=== PATIENT | female | born 1960 | race Caucasian/White ===

== ENCOUNTER 2017-11-08 16:27 | Emergency (ER) | payer MEDICAID | END 2017-11-08 19:14 | disposition home or self-care (01) | LOC: D.ER 16:27 | DX: R11.2 Nausea with vomiting, unspecified (principal); R19.7 Diarrhea, unspecified; E11.9 Type 2 diabetes mellitus without complications; Z79.4 Long term (current) use of insulin; I25.810 Atherosclerosis of coronary artery bypass graft(s) without angina pectoris; I10 Essential (primary) hypertension; J44.9 Chronic obstructive pulmonary disease, unspecified ==

== ENCOUNTER 2018-01-01 12:34 | Emergency (ER) | payer MEDICAID ==
[~2018-01-01] VITALS: Ht 165.1 cm; Wt 66.8 kg
[2018-01-01 13:42] VITALS: Ht 165.1 cm; Wt 66.8 kg
[2018-01-01] MEDS ORDERED: TIROSINT100 MCG PO (13:45)
[2018-01-01] MEDS ORDERED: PROVENTIL HFA6.7 GM INH (13:46)
[2018-01-01] MEDS ORDERED: CATAPRES0.1 MG PO (13:46)
[2018-01-01] MEDS ORDERED: SEROQUEL300 MG PO (13:47)
[2018-01-01] MEDS ORDERED: ROPINIROLE HCL2 MG PO (13:47)
[2018-01-01] MEDS ORDERED: ROBAXIN-750750 MG PO (20:25)
[2018-01-01] MEDS ORDERED: TORADOL10 MG PO (20:25)
[2018-01-01 21:01] VITALS: BP 136/90
[2018-01-01 21:30] LABS: UDS - AMPHET POSITIVE QUAL (NEGATIVE); UDS - BARB NEGATIVE QUAL (NEGATIVE); UDS - BENZO NEGATIVE QUAL (NEGATIVE); UDS - COCAINE NEGATIVE QUAL (NEGATIVE); UDS - OPIATE NEGATIVE QUAL (NEGATIVE); UDS - PCP NEGATIVE QUAL (NEGATIVE); UDS - THC NEGATIVE QUAL (NEGATIVE)
[2018-01-01 21:43] LABS: APPEARANCE CLEAR (CLEAR); BILIRUBIN NEGATIVE (NEGATIVE); COLOR STRAW (YELLOW); GLUCOSE NEGATIVE (NEGATIVE); KETONE NEGATIVE (NEGATIVE); NITRITE NEGATIVE (NEGATIVE); PROTEIN NEGATIVE (NEGATIVE); UROBILINOGEN NORMAL (NORMAL)
[2018-01-01 21:44] LABS: BACTERIA MANY /hpf (NONE SEEN); MUCUS <1+ /lpf (NONE SEEN); RED CELLS - URINE 0-5 /hpf (0-5)
== END 2018-01-01 21:02 | disposition home or self-care (01) ==
LOC: D.ER 12:34
PROVIDERS: Family Medicine
DX: S39.012A Strain of muscle, fascia and tendon of lower back, initial encounter (principal); Y93.83 Activity, rough housing and horseplay; Y92.019 Unspecified place in single-family (private) house as the place of occurrence of the external cause; F17.200 Nicotine dependence, unspecified, uncomplicated

== ENCOUNTER 2018-02-15 08:45 | Emergency (ER) | payer MEDICAID ==
[~2018-02-15] VITALS: Ht 165.1 cm; Wt 65.9 kg
[~2018-02-15 08:45] MED LIST: CATAPRES0.1 MG PO; PROVENTIL HFA6.7 GM INH; ROBAXIN-750750 MG PO; ROPINIROLE HCL2 MG PO; SEROQUEL300 MG PO; TIROSINT100 MCG PO; TORADOL10 MG PO
[2018-02-15 08:55] VITALS: Ht 165.1 cm; Wt 65.9 kg
[2018-02-15 11:18] VITALS: BP 135/88
== END 2018-02-15 11:18 | disposition home or self-care (01) ==
LOC: D.ER 08:45
DX: S32.591A Other specified fracture of right pubis, initial encounter for closed fracture (principal); W19.XXXA Unspecified fall, initial encounter; Y93.89 Activity, other specified; Y92.019 Unspecified place in single-family (private) house as the place of occurrence of the external cause; M25.551 Pain in right hip; E07.9 Disorder of thyroid, unspecified; I10 Essential (primary) hypertension; J44.9 Chronic obstructive pulmonary disease, unspecified; F17.200 Nicotine dependence, unspecified, uncomplicated

== ENCOUNTER 2018-03-27 06:42 | Emergency (ER) | payer MEDICAID ==
[~2018-03-27] VITALS: Ht 165.1 cm; Wt 68.2 kg
[2018-03-27 06:43] VITALS: Ht 165.1 cm; Wt 68.2 kg
[2018-03-27 07:28] LABS: BASOPHILS 0.4 % (0-2); EOSINOPHILS 5.8 % (0-7); HEMATOCRIT 38.2 % (36.0-48.0); HEMOGLOBIN 13.1 g/dL (12-16); LYMPHOCYTES 40.7 % (15-50); MCH 29.8 pg (26.0-34.0); MCHC 34.3 g/dL (31.0-37.0); MONOCYTES 5.9 % (2-11); NEUTROPHILS 47.2 % (40-80); PLATELET COUNT 252 10x3/uL (130-400); RBC 4.39 10x6/uL (4.00-5.40); RDW 13.6 % (11.5-14.5); WBC 7.3 10x3/uL (4.8-10.8)
[2018-03-27 07:40] LABS: ALBUMIN 3.3 g/dL (3.4-5.0); ANION GAP 14.7 mmol/L (8-16); BILIRUBIN - TOTAL 0.3 mg/dL (0.2-1.3); CALCIUM 8.6 mg/dL (8.5-10.1); CARBON DIOXIDE 23.7 mmol/L (21.0-32.0); CREATININE - SERUM 0.9 mg/dL (0.6-1.3)
[2018-03-27 07:42] LABS: POTASSIUM - SERUM 3.4 mmol/L (3.5-5.1)
[2018-03-27] MEDS ORDERED: KEFLEX500 MG PO (08:04)
[2018-03-27] MEDS ORDERED: NORCO 7.5/325 T1 TA1 PO (08:04)
[2018-03-27 08:44] VITALS: BP 154/89
== END 2018-03-27 08:45 | disposition home or self-care (01) ==
LOC: D.ER 06:42
PROVIDERS: Family Medicine
DX: R06.00 Dyspnea, unspecified (principal); J40 Bronchitis, not specified as acute or chronic; J44.9 Chronic obstructive pulmonary disease, unspecified; I10 Essential (primary) hypertension; F17.200 Nicotine dependence, unspecified, uncomplicated

== ENCOUNTER 2018-05-02 05:59 | Inpatient (IN) | payer MEDICAID ==
[~2018-05-02] VITALS: Ht 165.1 cm; Wt 63.6 kg
--- NOTE | ~2018-05-02 | MORECARE ---
CASE MANAGEMENT DISCHARGE SUMMARY PATIENT: LUIS NAVARRO UNIT: [id number] ADM DATE: 05/02/18 AGE: 58 : 64 SEX: F ROOM/BED: D.6554 AUTHOR: GUILHERME,DOC PHYSICIAN: REFERRING PHYSICIAN: CHARLIE CASTILLO MD DATE OF SERVICE: 05/05/18 Discharge Plan Patient Name: LUIS NAVARRO Facility: [facility]:[place] : 1960 Planned Disposition: Home Anticipated Discharge Date: 05/05/18 Discharge Date: 05/05/2018 Expected LOS: 3 Initial Reviewer: [email or web address] Initial Review Date: 05/02/2018 Generated: 05/05/18 3:54 pm Comments DCP- Discharge Planning Updated by [email or web address]: Rita Ward on 05/05/18 1:[address] LATE [id number] PATIENT WAS VERY ANXIOUS. WANTING TO LEAVE. STATED HER "DOGGIE" HAD BEEN LEFT AT HOME FOR 5 DAYS. STATES NO ONE THERE TO ASSIST. ADVISED HER NURSE, TRANG, THAT HER LANDLORD WAS ASSISTING WITH THE DOG. PATIENT WAS AT THE DESK WANTING TO LEAVE. CM AND NURSE REQUESTING HER TO WAIT FOR HER DISCHARGE PAPERWORK SHE STATES SHE CANNOT RECALL HER PCP. PHARMACY- [facility] ON [address]. CM CALLED [facility] ON [address]. SPOKE WITH MARSHA. SHE STATES CINDY BETHEA APN, HAS BEEN ORDERING HER MEDS AND DR EMMANUEL. CONTACT PHONE NUMBER FOR THE CLINIC IS [phone]. WILL NEED TO FOLLOW UP WITH THE CLINIC SUNDAY TO UPDATE HER MED LIST. PATIENT HAS 3 SLOTS ON HER MEDICAID. SHE WILL NEED AN EXTENSION FOR HER MEDS. DISCUSSED WITH CLINICAL COORDINATOR, MAMTA. PATIENT ALSO NEEDS TRANSPORTATION TO HOME. CM WILL ARRANGE [facility]SP[facility] WITH CASE MANAGEMENT VOUCHER WHEN DISCHARGE IS COMPLETED. CORRECTION OF HOME ADDRESS [address] [facility], [place], [place]. LATE ENTRY 1225 TC TO [place] [facility] TO REQUEST [facility] TRANSPORT TO HOME. DCPIA - Discharge Planning Initial Assessment Updated by [email or web address]: Rita Ward on 05/05/18 2:34 pm * Is the patient Alert and Oriented? Yes * How many steps to enter\\exit or inside your home? NONE * PCP CINDY BETHEA APN * Pharmacy [facility] [address] [facility] * Preadmission Environment Home Alone * ADLs Independent * Equipment Nebulizer * Other Equipment ENIES ANY OTHER DME * List name and contact numbers for known caregivers / representatives who currently or will assist patient after discharge: NO NAME GIVEN * Verbal permission to speak to the caregivers and representatives has been obtained from the patient. No * Community resources currently utilized None * Please name any agencies selected above. N/A * Additional services required to return to the preadmission environment? No * Can the patient safely return to the preadmission environment? Yes Last DP export: 05/05/18 1:41 Patient Name: LUIS NAVARRO Page [id number] at 1454 All edits/amendments must be made on the electronic document DICTATION DATE: 05/05/181453 [employer] DIRECTOR: GIANNA 05/05/184 RPT#: [id number] DC DATE:05/05/18 STATUS: DIS IN [facility] [address] [place] [address] END OF REPORT
--- NOTE | ~2018-05-02 | MORECARE ---
CASE MANAGEMENT DISCHARGE SUMMARY PATIENT: LUIS NAVARRO UNIT: [id number] ADM DATE: 05/02/18 AGE: 58 : 64 SEX: F ROOM/BED: D.2104 AUTHOR: MASON VANEGAS PHYSICIAN: REFERRING PHYSICIAN: CHARLIE CASTILLO MD DATE OF SERVICE: 05/05/18 Discharge Plan Patient Name: LUIS ANVARRO [facility] : 1960 Planned Disposition: Home Anticipated Discharge Date: 05/05/18 Discharge Date: 05/05/2018 Expected LOS: 3 Initial Reviewer: [email or web address] Initial Review Date: 05/02/2018 Generated: 05/05/18 3:41 pm DCPIA - Discharge Planning Initial Assessment Updated by [id number]: Rita Ward on 05/05/18 2:34 pm * Is the patient Alert and Oriented? Yes * How many steps to enter\exit or inside your home? NONE * PCP CINDY BETHEA APN * [facility] * Preadmission Environment Home Alone * ADLs Independent * Equipment Nebulizer * Other Equipment ENIES ANY OTHER DME * List name and contact numbers for known caregivers / representatives who currently or will assist patient after discharge: NO NAME GIVEN * Verbal permission to speak to the caregivers and representatives has been obtained from the patient. No * Community resources currently utilized None * Please name any agencies selected above. N/A * Additional services required to return to the preadmission environment? No * Can the patient safely return to the preadmission environment? Yes Last DP export: 05/05/18 1:32 Patient Name: LUIS NAVARRO Page [phone] at 1441 All edits/amendments must be made on the electronic document DICTATION DATE: 05/05/181440 STEM CRUSHER: GIANNA 05/05/181440 RPT#: [id number] DC DATE:05/05/18 STATUS: DIS IN [facility] [address] [place] [address] END OF REPORT
--- NOTE | ~2018-05-02 | MORECARE ---
CASE MANAGEMENT DISCHARGE SUMMARY PATIENT: LUIS NAVARRO UNIT: [id number] ADM DATE: 05/02/18 AGE: 58 : 64 SEX: F ROOM/BED: D.9868 AUTHOR: GUILHERME,DOC PHYSICIAN: REFERRING PHYSICIAN: CHARLIE CASTILLO MD DATE OF SERVICE: 05/06/18 Discharge Plan Patient Name: LUIS NAVARRO Facility: [facility]:[place] : 1960 Planned Disposition: Home Anticipated Discharge Date: 05/05/18 Discharge Date: 05/05/2018 Expected LOS: 3 Initial Reviewer: [email or web address] Initial Review Date: 05/02/2018 Generated: 05/06/18 9:37 am Comments DCP- Discharge Planning Updated by [email or web address]: Rita Ward on 05/05/18 1:[address] LATE [id number] PATIENT WAS VERY ANXIOUS. WANTING TO LEAVE. STATED HER "DOGGIE" HAD BEEN LEFT AT HOME FOR 5 DAYS. STATES NO ONE THERE TO ASSIST. ADVISED HER NURSE, TRANG, THAT HER LANDLORD WAS ASSISTING WITH THE DOG. PATIENT WAS AT THE DESK WANTING TO LEAVE. CM AND NURSE REQUESTING HER TO WAIT FOR HER DISCHARGE PAPERWORK SHE STATES SHE CANNOT RECALL HER PCP. PHARMACY- [facility] ON [address]. CM CALLED [facility] ON [address]. SPOKE WITH MARSHA. SHE STATES CINDY BETHEA APN, HAS BEEN ORDERING HER MEDS AND DR EMMANUEL. CONTACT PHONE NUMBER FOR THE CLINIC IS [phone]. WILL NEED TO FOLLOW UP WITH THE CLINIC SUNDAY TO UPDATE HER MED LIST. PATIENT HAS 3 SLOTS ON HER MEDICAID. SHE WILL NEED AN EXTENSION FOR HER MEDS. DISCUSSED WITH CLINICAL COORDINATOR, MAMTA. PATIENT ALSO NEEDS TRANSPORTATION TO HOME. CM WILL ARRANGE [facility]SPORT WITH CASE MANAGEMENT VOUCHER WHEN DISCHARGE IS COMPLETED. CORRECTION OF HOME AD[address]ESS [address] [facility], [place], [place]. LATE ENTRY 1225 TC TO [place] [facility] TO REQUEST [facility] TRANSPORT TO HOME. DCPIA - Discharge Planning Initial Assessment Updated by [email or web address]: Rita Ward on 05/05/18 2:34 pm * Is the patient Alert and Oriented? Yes * How many steps to enter\\exit or inside your home? NONE * PCP CINDY BETHEA APN * Pharmacy [facility] [address] [facility] * Preadmission Environment Home Alone * ADLs Independent * Equipment Nebulizer * Other Equipment ENIES ANY OTHER DME * List name and contact numbers for known caregivers / representatives who currently or will assist patient after discharge: NO NAME GIVEN * Verbal permission to speak to the caregivers and representatives has been obtained from the patient. No * Community resources currently utilized None * Please name any agencies selected above. N/A * Additional services required to return to the preadmission environment? No * Can the patient safely return to the preadmission environment? Yes Last DP export: 05/05/18 1:54 Patient Name: LUIS NAVARRO Page 73845 at 0837 All edits/amendments must be made on the electronic document DICTATION DATE: 05/06/18836 THERMO PROCESSOR: GIANNA 05/06/1837 RPT#: [id number] DC DATE:05/05/18 STATUS: DIS IN [facility] [address] [place] [address] END OF REPORT
--- NOTE | ~2018-05-02 | MORECARE ---
CASE MANAGEMENT DISCHARGE SUMMARY PATIENT: LUIS NAVARRO UNIT: [id number] ADM DATE: 05/02/18 AGE: 58 : 64 SEX: F ROOM/BED: D.2100 AUTHOR: MASON VANEGAS PHYSICIAN: REFERRING PHYSICIAN: CHARLIE CASTILLO MD DATE OF SERVICE: 05/05/18 Discharge Plan Patient Name: LUIS NAVARRO Facility: [facility]:[place] : 1960 Planned Disposition: Home Anticipated Discharge Date: 05/05/18 Discharge Date: 05/05/2018 Expected LOS: 3 Initial Reviewer: [email or web address] Initial Review Date: 05/02/2018 Generated: 05/05/18 3:32 pm Patient Name: LUIS NAVARRO Page [id number] at 1432 All edits/amendments must be made on the electronic document DICTATION DATE: 05/05/18 1432 [employer] APPRENTICE: GIANNA 05/05/18 1432 RPT#: [id number] DC DATE:05/05/18 STATUS: DIS IN [facility] [address] [place] [address] END OF REPORT
[~2018-05-02 05:59] MED LIST changes: +KEFLEX500 MG PO; +NORCO 7.5/325 T1 TA1 PO
[2018-05-02 06:20] LABS: BASOPHILS 0.4 % (0-2); EOSINOPHILS 7.4 % (0-7); HEMATOCRIT 46.6 % (36.0-48.0); HEMOGLOBIN 15.5 g/dL (12-16); IMMATURE GRANULOCYTES 0.2 % (0-5); LYMPHOCYTES 38.5 % (15-50); MCH 29.1 pg (26.0-34.0); MCHC 33.3 g/dL (31.0-37.0); MCV 87.6 fL (80.0-100.0); MEAN PLATELET VOLUME 10.2 fL (7.4-10.4); MONOCYTES 8.6 % (2-11); NEUTROPHILS 44.9 % (40-80); RBC 5.32 10x6/uL (4.00-5.40); RDW 13.5 % (11.5-14.5); WBC 9.4 10x3/uL (4.8-10.8)
[2018-05-02 06:26] LABS: PLATELET COUNT 354 10x3/uL (130-400)
[2018-05-02 06:27] LABS: APTT 28.5 SECONDS (22.8-39.4); INR 0.93 (0.85-1.17); PROTIME 12.1 SECONDS (11.6-15.0)
[2018-05-02 06:28] LABS: D-DIMER-QUANTITATIVE 0.35 ug/mLFEU (0.20-0.54)
[2018-05-02 06:30] LABS: ALBUMIN 3.8 g/dL (3.4-5.0); ALKALINE PHOSPHATASE 107 U/L (46-116); ALT (SGPT) 18 U/L (10-68); BILIRUBIN - TOTAL 0.27 mg/dL (0.2-1.3); CALC OSMOLALITY 287 mosm/kg (275-300); CALCIUM 9.6 mg/dL (8.5-10.1); CARBON DIOXIDE 27.6 mmol/L (21.0-32.0); CHLORIDE - SERUM 105 mmol/L (98-107); GLUCOSE 110 mg/dL (74-106); POTASSIUM - SERUM 4.3 mmol/L (3.5-5.1); PROTEIN - SERUM 8.1 g/dL (6.4-8.2); SODIUM 143 mmol/L (136-145); UREA NITROGEN 18 mg/dL (7-18); eGFR NON AFRICAN AMERICAN 61 mL/min (90-120)
[2018-05-02 06:41] LABS: CREATINE KINASE 121 UL (21-215); PRO BNP 55 pg/mL (0-125); TROPONIN-I 0.031 ng/mL (0.000-0.060)
[2018-05-02 10:02] VITALS: BMI 23.3
[2018-05-02 10:22] VITALS: BMI 23.2
[2018-05-02 11:14] VITALS: BP 127/75
[2018-05-02 12:28] VITALS: Ht 165.1 cm; Wt 63.6 kg
[2018-05-02 13:24] LABS: CKMB 2.4 U/L (0.0-3.6); CREATINE KINASE 98 UL (21-215)
[2018-05-02 15:02] VITALS: BP 113/68
[2018-05-02 19:37] LABS: CKMB 2.4 U/L (0.0-3.6); CREATINE KINASE 87 UL (21-215); TROPONIN-I 0.027 ng/mL (0.000-0.060)
[2018-05-02 20:00] VITALS: BP 124/65
[2018-05-03] VITALS: BP 104/65
[2018-05-03 01:24] LABS: CKMB 2.9 U/L (0.0-3.6); CREATINE KINASE 81 UL (21-215); TROPONIN-I 0.031 ng/mL (0.000-0.060)
[2018-05-03 04:00] VITALS: BP 121/63
[2018-05-03 06:15] LABS: HEMATOCRIT 40.4 % (36.0-48.0); HEMOGLOBIN 13.4 g/dL (12-16); LYMPHOCYTES 4.1 % (15-50); MCH 28.5 pg (26.0-34.0); MCHC 33.2 g/dL (31.0-37.0); MCV 85.8 fL (80.0-100.0); MEAN PLATELET VOLUME 10.3 fL (7.4-10.4); NEUTROPHILS 92.7 % (40-80); PLATELET COUNT 296 10x3/uL (130-400); RBC 4.71 10x6/uL (4.00-5.40); RDW 12.7 % (11.5-14.5)
[2018-05-03 06:16] LABS: WBC 17.5 10x3/uL (4.8-10.8)
[2018-05-03 06:30] LABS: ALBUMIN 2.8 g/dL (3.4-5.0); ANION GAP 14.2 mmol/L (8-16); BILIRUBIN - TOTAL 0.22 mg/dL (0.2-1.3); CALCIUM 9.4 mg/dL (8.5-10.1); CARBON DIOXIDE 25.3 mmol/L (21.0-32.0); POTASSIUM - SERUM 4.5 mmol/L (3.5-5.1); PROTEIN - SERUM 6.5 g/dL (6.4-8.2)
[2018-05-03 08:20] VITALS: BP 109/63
[2018-05-03 12:07] VITALS: BP 127/70
[2018-05-03 14:14] VITALS: BP 97/51
[2018-05-03 20:00] VITALS: BP 107/65
[2018-05-04 00:10] VITALS: BP 111/79
[2018-05-04 04:00] VITALS: BP 95/55
[2018-05-04 05:47] LABS: BASOPHILS 0 % (0-2); EOSINOPHILS 0 % (0-7); HEMATOCRIT 37.4 % (36.0-48.0); HEMOGLOBIN 12.1 g/dL (12-16); IMMATURE GRANULOCYTES 0.2 % (0-5); LYMPHOCYTES 4.3 % (15-50); MCH 28.3 pg (26.0-34.0); MCHC 32.4 g/dL (31.0-37.0); MCV 87.6 fL (80.0-100.0); MEAN PLATELET VOLUME 10.5 fL (7.4-10.4); NEUTROPHILS 93.5 % (40-80); PLATELET COUNT 298 10x3/uL (130-400); RBC 4.27 10x6/uL (4.00-5.40); RDW 13.6 % (11.5-14.5); WBC 16.8 10x3/uL (4.8-10.8)
[2018-05-04 06:03] LABS: ANION GAP 10.2 mmol/L (8-16); CALCIUM 8.9 mg/dL (8.5-10.1); CARBON DIOXIDE 27.5 mmol/L (21.0-32.0); CREATININE - SERUM 0.9 mg/dL (0.6-1.3); POTASSIUM - SERUM 4.7 mmol/L (3.5-5.1)
[2018-05-04 07:40] VITALS: BP 98/50
[2018-05-04 10:40] VITALS: BP 97/59
[2018-05-04 14:34] VITALS: BP 115/59
[2018-05-04 20:00] VITALS: BP 134/72
[2018-05-05 00:06] VITALS: BP 124/78
[2018-05-05 04:00] VITALS: BP 124/58
[2018-05-05 05:17] LABS: BASOPHILS 0 % (0-2); EOSINOPHILS 0 % (0-7); HEMATOCRIT 37.9 % (36.0-48.0); HEMOGLOBIN 12.2 g/dL (12-16); IMMATURE GRANULOCYTES 0.4 % (0-5); MCH 28.4 pg (26.0-34.0); MCHC 32.2 g/dL (31.0-37.0); MCV 88.3 fL (80.0-100.0); MEAN PLATELET VOLUME 10.8 fL (7.4-10.4); MONOCYTES 2.1 % (2-11); NEUTROPHILS 91.5 % (40-80); RBC 4.29 10x6/uL (4.00-5.40); RDW 13.7 % (11.5-14.5)
[2018-05-05 05:26] LABS: PLATELET COUNT 238 10x3/uL (130-400)
[2018-05-05 05:30] LABS: CALC OSMOLALITY 282 mosm/kg (275-300); CALCIUM 8.9 mg/dL (8.5-10.1); CARBON DIOXIDE 26.6 mmol/L (21.0-32.0); CHLORIDE - SERUM 106 mmol/L (98-107); CREATININE - SERUM 0.8 mg/dL (0.6-1.3); GLUCOSE 131 mg/dL (74-106); POTASSIUM - SERUM 4.6 mmol/L (3.5-5.1); SODIUM 140 mmol/L (136-145); UREA NITROGEN 19 mg/dL (7-18); eGFR NON AFRICAN AMERICAN 78 mL/min (90-120)
[2018-05-05 08:37] VITALS: BP 141/81
[2018-05-05] MEDS ORDERED: FLUTICASONE PRO16 GM NASAL (10:09)
[2018-05-05] MEDS ORDERED: PREDNISONE20 MG PO (10:09)
[2018-05-05] MEDS ORDERED: ZITHROMAX250 MG PO (10:10)
[2018-05-05] MEDS ORDERED: OMNICEF300 MG PO (10:10)
[2018-05-05] MEDS ORDERED: SINGULAIR10 MG PO (12:38)
[2018-05-05] MEDS ORDERED: IPRAT-ALBUT 0.5-3 ML UPD (12:39)
[2018-05-05] MEDS ORDERED: SYMBICORT 80-10.2 GM INH (12:40)
[2018-05-05] MEDS ORDERED: PULMICORT0.5 MG/21 INH (12:44)
== END 2018-05-05 12:40 | disposition home or self-care (01) | DRG 189 ==
LOC: D.ER 05:59 → D.M2 07:15
PROVIDERS: Family Medicine; Internal Medicine Nephrology
DX: J96.21 Acute and chronic respiratory failure with hypoxia (principal); J15.6 Pneumonia due to other Gram-negative bacteria; J13 Pneumonia due to Streptococcus pneumoniae; J44.1 Chronic obstructive pulmonary disease with (acute) exacerbation; J98.11 Atelectasis; F17.213 Nicotine dependence, cigarettes, with withdrawal; J44.0 Chronic obstructive pulmonary disease with (acute) lower respiratory infection; J20.9 Acute bronchitis, unspecified; E03.9 Hypothyroidism, unspecified; I25.10 Atherosclerotic heart disease of native coronary artery without angina pectoris; E78.5 Hyperlipidemia, unspecified; I10 Essential (primary) hypertension; F41.9 Anxiety disorder, unspecified; F15.10 Other stimulant abuse, uncomplicated; G62.9 Polyneuropathy, unspecified; Z59.0 Homelessness

== ENCOUNTER 2019-04-06 15:17 | Emergency (ER) | payer MEDICAID ==
[~2019-04-06] VITALS: Ht 165.1 cm; Wt 68.2 kg
[~2019-04-06 15:17] MED LIST changes: +FLUTICASONE PRO16 GM NASAL; +IPRAT-ALBUT 0.5-3 ML UPD; +OMNICEF300 MG PO; +PREDNISONE20 MG PO; +PULMICORT0.5 MG/21 INH; +SINGULAIR10 MG PO; +SYMBICORT 80-10.2 GM INH; +ZITHROMAX250 MG PO
[2019-04-06 15:21] VITALS: Ht 165.1 cm; Wt 68.2 kg
[2019-04-06 15:59] LABS: APPEARANCE CLEAR (CLEAR); BILIRUBIN NEGATIVE (NEGATIVE); COLOR YELLOW (YELLOW); GLUCOSE NEGATIVE (NEGATIVE); KETONE NEGATIVE (NEGATIVE); NITRITE NEGATIVE (NEGATIVE); PROTEIN 2+ mg/dL (NEGATIVE); UROBILINOGEN NORMAL (NORMAL)
[2019-04-06 16:01] LABS: BACTERIA MANY /hpf (NEGATIVE); EPITHELIAL CELLS 0-5 /hpf (0-5); WHITE CELLS - URINE 0-5 /hpf (NEGATIVE)
[2019-04-06 16:05] LABS: UDS - AMPHET POSITIVE QUAL (NEGATIVE); UDS - BARB NEGATIVE QUAL (NEGATIVE); UDS - BENZO POSITIVE QUAL (NEGATIVE); UDS - COCAINE NEGATIVE QUAL (NEGATIVE); UDS - OPIATE NEGATIVE QUAL (NEGATIVE); UDS - PCP NEGATIVE QUAL (NEGATIVE); UDS - THC NEGATIVE QUAL (NEGATIVE)
[2019-04-06 16:07] LABS: BASOPHILS 0.4 % (0-2); EOSINOPHILS 1.5 % (0-7); HEMATOCRIT 37.2 % (36.0-48.0); HEMOGLOBIN 12.2 g/dL (12-16); IMMATURE GRANULOCYTES 0.1 % (0-5); LYMPHOCYTES 22.3 % (15-50); MCHC 32.8 g/dL (31.0-37.0); MCV 88.6 fL (80.0-100.0); MEAN PLATELET VOLUME 9.7 fL (7.4-10.4); MONOCYTES 8.1 % (2-11); NEUTROPHILS 67.6 % (40-80); RDW 13.4 % (11.5-14.5)
[2019-04-06 16:20] LABS: PLATELET COUNT 295 10x3/uL (130-400)
[2019-04-06 16:30] LABS: ALBUMIN 3.7 g/dL (3.4-5.0); ANION GAP 12.9 mmol/L (8-16); BILIRUBIN - TOTAL 0.91 mg/dL (0.2-1.3); CARBON DIOXIDE 24.7 mmol/L (21.0-32.0); POTASSIUM - SERUM 3.6 mmol/L (3.5-5.1)
[2019-04-06 16:48] VITALS: BP 140/81
== END 2019-04-06 17:42 | disposition home or self-care (01) ==
LOC: D.ER 15:17
PROVIDERS: Family Medicine
DX: S90.32XA Contusion of left foot, initial encounter (principal); Y04.8XXA Assault by other bodily force, initial encounter; F15.10 Other stimulant abuse, uncomplicated

== ENCOUNTER 2019-05-15 04:15 | Emergency (ER) | payer OTHER ==
[~2019-05-15] VITALS: Ht 165.1 cm; Wt 63.6 kg
[2019-05-15 04:17] VITALS: Ht 165.1 cm; Wt 63.6 kg
[2019-05-15] MEDS ORDERED: CYCLOBENZAPRINE10 MG PO (05:17)
[2019-05-15 05:34] VITALS: BP 136/85
== END 2019-05-15 05:35 | disposition home or self-care (01) ==
LOC: D.ER 04:15
DX: M54.5 Low back pain (principal)

== ENCOUNTER 2020-10-09 18:02 | Emergency (ER) | payer OTHER ==
[~2020-10-09] VITALS: Ht 165.1 cm; Wt 85.0 kg
[~2020-10-09 18:02] MED LIST changes: +AZITHROMYCIN500 MG PO; +COLACE100 MG PO; +CYCLOBENZAPRINE10 MG PO; +DICLOFENAC SODI50 MG PO; +FEXOFENADINE HC60 MG PO; +FLORAJEN3 CAPS460 MG PO; +MUCINEX600 MG PO; +PREDNISONE10 MG PO; +PULMICORT0.5 MG/21 UPD; +TESSALON PERLE100 MG PO
[2020-10-09 18:08] VITALS: BP 151/87; Ht 165.1 cm; Wt 85.0 kg
[2020-10-09 18:22] LABS: BASOPHILS 0.2 % (0-2); EOSINOPHILS 3.3 % (0-7); HEMATOCRIT 38.4 % (36.0-48.0); HEMOGLOBIN 12.3 g/dL (12-16); IMMATURE GRANULOCYTES 0.1 % (0-5); LYMPHOCYTE ABS# 2.42 10x3/uL (1.18-3.74); LYMPHOCYTES 27.5 % (15-50); MCH 27.3 pg (26.0-34.0); MCV 85.3 fL (80.0-100.0); MEAN PLATELET VOLUME 10.2 fL (7.4-10.4); MONOCYTES 6.4 % (2-11); NEUTROPHIL ABS# 5.51 10x3/uL (1.56-6.13); NEUTROPHILS 62.5 % (40-80); PLATELET COUNT 324 10x3/uL (130-400); WBC 8.8 10x3/uL (4.8-10.8)
[2020-10-09 18:29] LABS: APTT 26.8 SECONDS (22.8-39.4); INR 1.01 (0.85-1.17); PROTIME 12.3 SECONDS (11.6-15.0)
[2020-10-09 18:32] LABS: CALC OSMOLALITY 282 mosm/kg (275-300); CALCIUM 8.6 mg/dL (8.5-10.1); CHLORIDE - SERUM 104 mmol/L (98-107); CREATININE - SERUM 1.4 mg/dL (0.6-1.3); GLUCOSE 99 mg/dL (74-106); POTASSIUM - SERUM 4.1 mmol/L (3.5-5.1); SODIUM 141 mmol/L (136-145); UREA NITROGEN 17 mg/dL (7-18); eGFR NON AFRICAN AMERICAN 41 mL/min (90-120)
[2020-10-09 18:47] LABS: ALBUMIN 3.3 g/dL (3.4-5.0); ALKALINE PHOSPHATASE 99 U/L (30-120); ALT (SGPT) 22 U/L (10-68); BILIRUBIN - TOTAL 0.21 mg/dL (0.2-1.3); CKMB 1.8 U/L (0.0-3.6); CREATINE KINASE 236 UL (21-215); PRO BNP 53 pg/mL (0-125); PROTEIN - SERUM 6.7 g/dL (6.4-8.2); TROPONIN-I 0.028 ng/mL (0.000-0.060)
[2020-10-09] MEDS ORDERED: AMOXICILLIN500 M1 PO (19:24)
[2020-10-09] MEDS ORDERED: MEDROL DOSE PACK4 MG PO (19:24)
[2020-10-09] MEDS ORDERED: MUCINEX DM ER1 EAC1 PO (19:24)
== END 2020-10-09 20:10 | disposition home or self-care (01) ==
LOC: D.ER 18:02
PROVIDERS: Family Medicine
DX: J06.9 Acute upper respiratory infection, unspecified (principal); R06.02 Shortness of breath; J44.9 Chronic obstructive pulmonary disease, unspecified; I10 Essential (primary) hypertension; K21.9 Gastro-esophageal reflux disease without esophagitis